=== PATIENT | male | born 1995 | race Caucasian/White ===

== ENCOUNTER 2019-02-22 10:23 | Day surgery (SDC) | payer BC, OTHER, SELFPAY ==
[2019-02-16 14:17] VITALS: BMI 30.4
[2019-02-22] VITALS (8 sets, daily range): BP systolic 106–147; BP diastolic 39–79; PULSE 55–97; RESP 16–20; TEMP 36.6–36.9; O2SAT 92–100; BMI 29.8
--- NOTE | 2019-02-22 12:43 | HP.PCM_ITS ---
History and Physical Date of Admission: 02/22/19 [facility] [address] [place], [place] [id number] OFFICE VISIT Date of Service: 02/16/19 MR#: [id number] Acct: [id number] Name: SCOTT HADDAD Rep #: [id number] : 1995 Provider: Tyrell Wolf MD Age/Sex: 24/M Location: [facility] Status: Signed Intake Vital Signs 02/16/19 Height 5 ft 8 in 02/16/19 Weight: 200 lb 02/16/19 Body Mass Index (BMI) 30.4 02/16/19 Blood Pressure 134/69 H 02/16/19 Blood Pressure Location Rt brachial 02/16/19 Blood Pressure Position Sitting 02/16/19 Respiratory Rate 18 02/16/19 Pulse Rate 66 02/16/19 Pulse Source Monitor 02/16/19 Temperature 98.3 F 02/16/19 Temperature Source Oral 02/16/19 Pulse Ox 97 02/16/19 Oxygen Delivery Method room air Intake Visit Reasons: Inguinal Hernia Left Side(no testing done) Food And Beverage Order Clerk Required: No Is patient in pain?: No Allergies acetaminophen [From Percocet] Adverse Reaction (Verified 02/20/19 14:02) Nausea oxycodone [From Percocet] Adverse Reaction (Verified 02/20/19 14:02) Nausea Medications NK 02/16/19 [History Confirmed 02/20/19] [facility] Medical History Abdominal pain (Acute) Surgical History History of appendectomy (Acute) History of right inguinal hernia repair (Acute) Family History Grandmother Heart disease Grandfather Heart disease Social History Smoking Status: Never smoker alcohol intake: current alcohol intake frequency: a few times a month substance use type: does not use HPI HPI HPI: SCOTT HADDAD is a 24 M who presents to the office today for HPI HPI Surgical H&P: Yes HPI: SCOTT HADDAD is a 24 M who presents to the office today for evaluate of left inguinal bulge 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 Last he noticed some disc discomfort comfort and a bone a bulge in his in his left left inguinal area.. ROS General General: No weight change, appetite, fatigue, colon cancer, breast cancer or weakness HEENT HEENT: No difficulty swallowing, eye injury, eye surgery, swollen glands or hoarseness Endo Endocrine: No thyroid disease, diabetes mellitus, thyroid cancer, Hair loss, heat intolerance or cold intolerance Skin Skin: No rash or changing moles Breast Breast: No left breast lump, right breast lump, nipple discharge, breast pain, abnormal mammogram, abnormal US or breast enlargement Musc Musculoskeletal: No back problems, arthritis, rheumatoid arthritis, gout or joint pain Cardio Cardiovascular: No murmur, pacemaker, heart disease, atrial fibrillation, high blood pressure, heart attack, heart stent, palpitations, shortness of breat with exertion or chest pain Psych Psychiatric: No depression, anxiety or hearing voices Resp Respiratory: No shortness of breath, No sleep apnea, No cough, No COPD, No asthma, No emphysema, No wheezing Gastro Gastrointestinal: Yes abdominal pain, No nausea or vomiting, No diarrhea, No constipation, No blood in stool, No acid reflux, No hemorrhoids, No ulcers, No gallbladder problem, No black,tarry stools Usama Hematologic: No blood thinners, No blood disorders, No bleeding, No anemia, No blood clots Neuro Neurologic: No system reviewed and no additional complaints, except as docu, No as per HPI, No abnormal walking, No abnormal hearing, No abnormal movements, No abnormal speech, No behavioral changes, No burning sensations, No confusion, No seizure-like activity, No unsteadiness, No dizziness, No localized weakness, No frequent falls, No headache(s), No lack of coordination, No loss of vision, No memory loss, No numbness, No other visual disturbances, No radiating pain, No restless legs, No sensory deficit, No fainting, No tingling, No tremor(s), No weakness, No other Exam Const General: no acute distress, well developed, well hydrated Orientation: oriented to person, oriented to place, oriented to time [facility] Head: normocephalic, atraumatic Ears: external ears normal Mouth: moist mucous membranes Eyes Sclera: sclerae normal Pupils: normal by confrontation Neck Neck: no lymphadenopathy noted Neck mass: No Thyroid: thyroid normal, symmetrical Chest Chest palpation & inspection: normal inspection of the chest Breast Palpation: No nipple discharge Resp Effort & Inspection: normal respiratory effort Auscultation: clear to auscultation bilaterally Percussion: percussion normal Cardio Rate: regular rate Rhythm: regular rhythm Heart Sounds: no murmurs GI Palpation: soft, no hepatosplenomegaly, no masses, tender Rectal Exam: other Other: Left inguinal hernia is identified on exam Rectal exam deferred. Extrem General: normal to inspection, no clubbing, cyanosis or edema Assessment & Plan Problems 1. Left inguinal hernia K40.90 Plan My plan is to perform a laparoscopic left inguinal hernia repair. The planned surgical procedure was discussed extensively with the patient. The risks, benefits, anticipated outcomes and possible complication were mentioned. The patient understands that all hernia repair surgery has a chance of recurrence and/or chronic post-operative pain. My staff has also explained the procedure in understandable terms and the patient was given the option to take printed material concerning the planned procedure. The patient had the opportunity to ask questions concerning the planned procedure. The patient freely consents to the planned procedure. Coding Level of Care Code Off vis,new,level 3 Diagnoses Left inguinal hernia K40.90 02/21/19 1440 <Electronically signed by Tyrell Wolf MD> Date Tyrell Wolf MD Cosigner Signature: Date (if applicable) CC: Aubrey Washington, ~ I have re-examined the patient. There are no clinical changes since date of exam.
[2019-02-22] MEDS: Cefazolin 2 GM in 0.9% Normal Saline 100 ML IV (13:11)
[2019-02-22] MEDS: Bupivacaine Mpf 0.5% 30 ML VIAL (13:50)
--- NOTE | 2019-02-22 14:03 | PCM.OPRPT ---
Problem List (1) Left inguinal hernia Status: Acute Report of Operation Date of Procedure: 02/22/19 Pre-Operative Diagnosis: Left inguinal hernia Post-Operative Diagnosis: Same Surgery/Procedure Performed:: Laparoscopic left inguinal hernia repair with mesh Type of Anesthesia:: General Anesthesiologist: Say Simms Description of Procedure: He was brought into the operating room placed in the supine position. Under excellent general trach intubation the abdomen was sterilely prepped and draped in usual fashion. Local was injected supraumbilically. Curvilinear incision was made. Dissection was carried down to the fascia. Fascia was grasped with Glenna. Varies needle was placed inside the abdomen. A 10/12 trocar was placed without difficulty. It was flank by 2 #5 trochars placed under direct visualization. Patient is placed in the head down rotated to the right position. Underscore the peritoneum on the left. Dissected down to Umair's ligament. Dissected laterally bringing back a indirect inguinal hernia after dissecting it free from the cord and vessel structures. Then dissected further laterally. I fashioned a medium 3D max mesh into the wound. I tacked to Umair's ligament with the pro-tacker. I tacked it superiorly and laterally with sparing tacks. I reperitonealized area. I injected local in an ileal inguinal nerve fashion under direct visualization. I inspected the right side there was no hernia identified. I remove the trochars under direct visualization. Good hemostasis was noted. Umbilical port was closed with a [id number] stitch of 0 Vicryl. Skin incisions were closed with some particular stitches of 4-0 Monocryl. Steri-Strips were applied sterile dressings were applied and the patient tolerated the procedure well. - Admit VTE Documentation VTE Present on Admission: No VTE Mechan Device Prophylaxis: SCD's VTE Pharm Prophylaxis ordered?: No Reason prophylaxis not ordered:: Treatment Not Indicated
--- NOTE | 2019-02-22 14:06 | PCM.DC.HER ---
Discharge Diet: Light diet - advance as tolerated Discharge Activity: Return to Normal Activity, May Drive - when you are no longer taking narcotic pain medications., May Shower - with the bandage in place 1-2 days after surgery. Lifting Restrictions: 20 pounds for 8 weeks. Additional Activity Instructions:: Climbing stairs is fine, walking is encouraged. Sitting in bed may be uncomfortable. Sitting up using your lateral muscles (sitting up sideways) is usually more comfortable. Do not drive, work heavy equipment of sign legal documents for 24 hours. If your hernia repair was an ingunial repair, you may have scrotal swelling, an ice pack and/or athletic support can provide more comfort. Pain medications may cause nausea, you should typically eat light foods as you take your pain medications. Pain medications may also cause constipation. If you have difficulty with this, discuss with your doctor. Call your doctor if your incision/area has: Continuous Slow Oozing, Sudden Increased Bleeding, Increased Pain/ Swelling, Increased Redness, Foul Smelling Discharge Call your doctor if you observe: Fever of 101 or Higher Suture Line Care: Avoid Pulling/Pushing, Avoid Pinching/Bending Additional Dressing/Incision Instructions:: Leave the operative bandage on for 2-3 days. When you remove the bandage, leave the steri-strips on place until your follow up appointment or they fall off. Allergies/Adverse Reactions: Allergies acetaminophen [From Percocet] Adverse Reaction (Verified 02/20/19 14:02) Nausea oxycodone [From Percocet] Adverse Reaction (Verified 02/20/19 14:02) Nausea Medications to take at Discharge Hydrocodone Bitart/Apap 5-325 [Snowflake 5MG-325MG] 1 - 2 tab PO Q4H PRN PRN 6 Days #30 tab 02/22/19 The following prescriptions were given: Hydrocodone Bitart/Apap 5-325 [Snowflake 5MG-325MG] 1 - 2 tab PO Q4H PRN PRN 6 Days #30 tab PRN Reason: Pain Primary Care Physician: Aubrey Quispe DO [Primary Care Provider] - Test Results: Test results from this visit will be discussed in further detail at your follow-up appointment, if applicable. Please Follow Up With: Tyrell Wolf MD - [phone] When: Plan to have a follow up appointment in 7 days. Call to schedule.
[2019-02-22] MEDS: HYDROcodone Bitartrate/Apap 5/325 Tablet PO ×2 (15:35→16:35)
== END 2019-02-22 17:32 | disposition home or self-care (01) ==
LOC: SDC 10:26 → AC 10:28
PROVIDERS: Family Provider Student in an Organized Health Care Education/Training Program; PCP Student in an Organized Health Care Education/Training Program; Referring Provider Surgery; Visit Provider Surgery
PROC: (CPT 49650; principal; 2019-02-22 12:15)
DX: K40.90 Unilateral inguinal hernia, without obstruction or gangrene, not specified as recurrent (principal)
CPT/HCPCS: 00840; 49650; J7120; C1781; J2405

== ENCOUNTER 2019-05-25 14:14 | Emergency (ER) | payer BC, OTHER, SELFPAY ==
[2019-02-22 10:54] VITALS: BMI 29.8
[2019-05-25 14:16] VITALS: BP 156/68; PULSE 80; RESP 16; TEMP 37.2; O2SAT 87; BMI 31.0
--- NOTE | 2019-05-25 14:55 | ED.DCSUM_ITS ---
History of Present Illness Chief Complaint: Bite Informant: Patient Onset: Today Context: Sudden Onset Timing: - - Bite x1 Quality: Dog bite dorsum left hand Location: Dorsum left hand Current Severity: Mild Maximum Severity: Moderate Worsened by: Palpation over puncture site dorsum left hand between the third and fifth m Relieved by: Nothing Associated Symptoms: No associated symptoms Narrative: Patient is a 24-year-old [id number] male who was bit by neighbors dog. He was bit left hand. He has an abrasion as well as a puncture wound dorsum of the left hand. He denies paresthesia, anesthesia or motor weakness. Last tetanus was 2010. Prior similar symptoms: No Recent Illness/Hospitalization: No - Past Medical History (1) Left inguinal hernia Status: Acute Past Medical History - Allergies and Home Meds Allergies/Adverse Reactions: Allergies acetaminophen [From Percocet] Adverse Reaction (Verified 05/25/19 14:16) Nausea oxycodone [From Percocet] Adverse Reaction (Verified 05/25/19 14:16) Nausea Primary Care Physician: Aubrey Quispe DO [Primary Care Provider] - Prior records reviewed: Yes Past Medical History: None Lives: Spouse/ Significant Other, With Family Smoking Status: Never smoker Alcohol: None Drugs: None Review of Systems General: Denies: Chills, Fever, Malaise, Sweats Musculoskeletal: Reports: Extremity Pain. Denies: Myalgias, Arthralgias, Swelling Skin: Reports: Abrasions, Wounds. Denies: Rash, Abscess Neurological: Denies: Weakness, Parasthesia, Numbness Hematologic: Denies: Easy bruising, Easy bleeding Allergy: Denies: Uticaria, Swelling of the mouth Physical Exam Vital Signs/Narrative: Vital Signs Temp Pulse Resp BP Pulse Ox 05/25/19 14:16 98.9 F 80 16 156/68 H 87 Inital Vital Signs reviewed: Yes General: Well nourished, Well developed, No Acute Distress Head: Normocephalic, Atraumatic Eyes: Perrl, EOMI. Negative for: Pale conjunctiva, Scleral icterus ENT: Moist mucous membranes, No rhinorrhea Cardiovascular: Regular rate, Regular rhythm Respiratory: No distress Extremities: No edema, - - The extensor indices, extensor commonness and extensor minimize tendon are intact. There is no pain the patient over the extensor tendons. There is no pain the patient over the second, third, fourth or fifth metacarpal. There is no pain palpation over the proximal phalanx of the index, long, ring or long finger.. Negative for: Nontender Skin: Normal color, No rash, Trauma. Negative for: Cyanosis, Diaphoresis, Jaundice Neurological: Alert, Oriented x3, Cranial nerves II-XII grossly intact, Normal Strength, Normal Sensation Psychological: Normal affect, Normal Mood Diagnostic/Tx/Re-eval - Medical Decision Making She with dog bite left hand. Tetanus was updated. Wound was cleansed and received first dose of Augmentin since he does not have allergy to penicillin. There are no neurovascular findings. He was told if he cannot be seen by his primary care physician for wound evaluation in 2 days to return to the emergency department. Since this is a puncture wound and not a laceration the incidence of infection is increased. ED Disposition - Plan for ED Patient: Disposition: Home or Assisted Living Diagnosis: Dog bite of multiple sites of left hand and fingers Instructions: Dog Bite Prescriptions: Amox/Clavulanate Tablet [Augmentin Tablet] 875 mg PO Q12H #10 tab Transmission Status: Pending to [facility]/pharmacy #[id number] Referrals: Aubrey Quispe DO [Primary Care Provider] - 2 Days for wound check Additional Instructions: Prescription was electronically transmitted to [facility] pharmacy located on back [facility]. If you are unable to be seen by her primary care physician for wound check in 2 days please return to the emergency room for reevaluation.
[2019-05-25] MEDS: Diphth,Pertuss(Acell),Tet Vac 0.5 ML Vial IM (15:02)
[2019-05-25] MEDS: Amox/Clavulanate 875 MG Tablet PO (15:02)
[2019-05-25 15:10] VITALS: BP 142/64; PULSE 84; RESP 18
== END 2019-05-25 15:25 | disposition home or self-care (01) ==
LOC: ED 15:16
PROVIDERS: Emergency Provider Emergency Medicine; Family Provider Student in an Organized Health Care Education/Training Program; PCP Student in an Organized Health Care Education/Training Program
DX: S61.432A Puncture wound without foreign body of left hand, initial encounter (principal); S61.239A Puncture wound without foreign body of unspecified finger without damage to nail, initial encounter; W54.0XXA Bitten by dog, initial encounter; Y93.9 Activity, unspecified
CPT/HCPCS: 90471; 90715; 99282

== ENCOUNTER 2023-06-05 02:08 | Emergency (ER) | payer BC, SELFPAY ==
[2023-06-05 02:08] VITALS: BP 147/99; PULSE 104; RESP 16; TEMP 37.1; O2SAT 98; BMI 27.6
--- NOTE | 2023-06-05 02:26 | CT_ITS ---
INDICATION: abd pain -- ? SBO EXAMINATION: CT Abdomen And Pelvis W/ Contrast Injection TECHNIQUE: Helically acquired images were obtained of the abdomen and pelvis with sagittal and coronal reconstructed images. Individualized dose optimization techniques were used for this CT. IV contrast dosage and agent: 100 mL of Isovue 300. Oral contrast: None. COMPARISON: None. FINDINGS: VESSELS: No abdominal aortic aneurysm or dissection. LIVER: No evidence of a mass. No intrahepatic or extrahepatic biliary duct dilation. GALLBLADDER: No calcified stones. No evidence of cholecystitis. PANCREAS: No focal solid or cystic mass. No evidence of pancreatitis. SPLEEN: Normal. ADRENAL GLANDS: Normal. KIDNEYS AND URETERS: No urinary tract stone. No hydronephrosis or hydroureter. No significant asymmetric perinephric stranding. 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 BOWEL: No evidence of diverticulosis or diverticulitis. Status post appendectomy. Prominent loops of small bowel with air-fluid levels measuring up to 2.8 cm in diameter. No evidence of bowel wall thickening or mesenteric edema or inflammatory change. REPRODUCTIVE ORGANS: No evidence of a pelvic mass. PERITONEUM: No intraabdominal free fluid or free air. LYMPH NODES: No pathologically enlarged mesenteric or retroperitoneal lymph nodes. ABDOMINAL WALL: No abdominal or pelvic wall hernia. BONES: No acute abnormality. LOWER CHEST: Visualized lung bases are unremarkable. CT/Abdomen/Pelvis W IV Cont ONLY IMPRESSION: Prominent loops of small bowel with air-fluid levels measuring up to 2.8 cm in diameter. Findings may represent enteritis or early small bowel obstruction. Electronically Signed: Gennaro Abreu DO at 3:42 EDT ,
[2023-06-05] MEDS: 0.9% Normal Saline (1000mL) 1,000 ML 999 ML IV (02:40)
[2023-06-05] MEDS: Ondansetron 4 MG/2 ML Vial IV (02:41)
[2023-06-05] MEDS: Morphine 4 MG/ML Syringe IV ×2 (02:41→06:40)
[2023-06-05 02:45] LABS: Absolute Lymphocyte Count 0.48 X10^3/uL (0.83-4.51); Absolute Neutrophil Count 10.5 X10^3/uL (2.0-7.7); Basophil# 0.03 X10^3/uL; Basophil% 0.3 % (0-1); Eosinophil# 0.04 X10^3/uL; Eosinophils% 0.3 % (0-5); Hemoglobin 16.4 g/dL (13.0-16.5); Lymphocyte # 0.48 X10^3/ul (0.83-4.51); Lymphocyte % 4.1 % (19-41); Mean Corp Hgb Conc 34.9 g/dL (32-36); Mean Corpuscular Hgb 28.3 pg (27.0-32.0); Monocyte# 0.64 X10^3/uL; Monocyte% 5.4 % (0-10); NRBC Flagged by Analyzer 0 % (0-5); Neutrophil # 10.53 X10^3/uL (2.7-7.7); Neutrophil % 89.6 % (47-70); POSITIVE DIFFERENTIAL YES; Platelet Count 183 K/mm3 (150-450); RBC Distribution Width CV 12.7 % (11.6-14.6); RBC Distribution Width SD 36.8 fl (35.1-43.9); White Blood Count 11.8 K/mm3 (4.4-11.0)
[2023-06-05 02:47] LABS: Differential Indicated SCAN CRITERIA MET
[2023-06-05 03:03] LABS: AST(SGOT) 11 U/L (15-37); Alanine Aminotransfer ALT/SGPT 23 U/L (16-61); Albumin, Serum 4.3 g/dL (3.2-5.0); Alkaline Phosphatase 55 U/L (45-117); Anion Gap 8 (5-15); BUN 22 mg/dL (7-18); BUN/Creat Ratio 19.3 RATIO (10-20); Calcium,Total 8.8 mg/dL (8.5-10.1); Chloride 106 mmol/L (98-107); Creatinine, Serum 1.14 mg/dL (0.70-1.30); EST Glomerular Filtration Rate 82 mL/min (>60); Est Glom Filt Rate - Afr Amer 99 mL/min (>60); Estimated Creatinine Clearance 97.33 ml/min; Globulin 3.4 g/dL (2.2-4.2); Glucose 159 mg/dL (74-106); Lipase 26 U/L (13-75); Potassium 3.9 mmol/L (3.5-5.1); Protein, Total 7.7 g/dL (6.4-8.2); Sodium Level 139 mmol/L (136-145)
[2023-06-05 03:10] LABS: Lactic Acid 1.6 mmol/L (0.4-1.9)
[2023-06-05 03:14] LABS: Differential Comment SCANNED
[2023-06-05 03:15] LABS: Toxic Granulation 1+
--- NOTE | 2023-06-05 06:36 | EDS_ITS ---
HPI History of Present Illness Chief Complaint: Abd Pain Informant: patient and spouse/S.O. Narrative Narrative: Patient is a 28-year-old male with past medical history of appendectomy as well as 3 previous hernia repairs with the most recent being laparoscopic done at [facility] by Dr. Aguilar roughly 3 weeks ago. Patient states he ate dinner this evening and then roughly 2 hours later had sudden onset upper abdominal pain with bouts of vomiting. He states he has not been able to get the pain or vomiting under control and secondary to this comes in for evaluation. He denies any history of previous obstruction. He states he had a bowel movement shortly after eating dinner which is normal for him but since that time his not had another bowel movement and denies passing gas [facility] Medical History (Updated 06/05/23 @ 06:[address] Aden Magallon DO) Abdominal pain Home Medications NK 06/05/23 [History Last Taken Unknown] Allergy/AdvReac Type Severity Reaction Status Date / Time acetaminophen [From Percocet] AdvReac Nausea Verified 06/05/23 02:12 oxycodone [From Percocet] AdvReac Nausea Verified 06/05/23 02:12 Family History Grandmother Heart disease Grandfather Heart disease Surgical History History of appendectomy History of right inguinal hernia repair Social History (Updated 03/02/19 @ 15:43 by Kirsty WKOK PA-C) Smoking Status: Never smoker alcohol intake: current alcohol intake frequency: a few times a month substance use type: does not use ROS ROS ED Constitutional Constitutional ED: Denies chills or fever(s) ENT ENT ED: Denies sore throat Cardiovascular Cardiovascular: Denies chest pain Respiratory/Chest Respiratory/Chest: Denies cough or dyspnea Gastrointestinal Gastrointestinal: Reports abdominal pain, nausea and vomiting; Denies diarrhea Genitourinary Genitourinary ED: Denies dysuria Musculoskeletal Musculoskeletal: Denies myalgias Integumentary Denies rash Neurologic Neurologic: Denies headache(s) Hematologic/Lymphatic Hematologic/Lymphatic: Denies easy bleeding or easy bruising EXAM Physical Exam Const Vital Signs: 06/05/23 02:08 Temperature 98.7 F Temperature Source Temporal Pulse Rate 104 H Respiratory Rate 16 Blood Pressure 147/99 H Blood Pressure Mean 115 Pulse Ox 98 Oxygen Delivery Method Room Air Positive well nourished and well developed General Appearance ED: well developed HEENT Reports moist mucous membranes HEENT Narrative: No secondary changes to suggest infection in the posterior pharynx Eyes PERRL and EOMs intact bilaterally Neck supple Resp normal respiratory effort and clear to auscultation bilaterally Cardio regular rate and regular rhythm GI GI Narrative: Abdomen is soft with hypoactive bowel sounds. There is mild pain with palpation in the midepigastric to left upper quadrant region. No voluntary guarding or rigidity. There is slight distention noted but no increased tympany. Auscultation: hypoactive bowel sounds Palpation: soft Back/Spine no CVA tenderness Extremity normal to inspection Neuro oriented x3 and CN's II-XII intact bilaterally Sensorium / Orientation: alert Psych mental status grossly normal Skin no rashes or lesions noted General Skin Exam: Negative for jaundice MDM MDM MDM Narrative Medical decision making narrative: Patient presented to the ER hypertensive otherwise with stable vitals. He reported sudden onset of upper abdominal pain with bouts of vomiting. His exam does not show changes consistent with an overt bowel obstruction but he does have a significant history that places him at risk for obstruction so therefore basic labs and a CT scan were obtained. Labs revealed no clinically significant findings but CT scan showed changes concerning for early small bowel obstruction. I discussed the case with our surgeon Dr. Santos. He does feel that based on the patient's CT scan and symptoms that observation is appropriate however as he had surgery 3 weeks ago at an outside hospital recommends the patient be sent back to their facility. Therefore I contacted [facility] and spoke to general surgery. They state at this time without obvious transition point they do not feel need to take him directly to an admission bed and instead recommend ER to ER transfer. Therefore the ER was contacted and they do agree to accept the patient at this time. The patient has had no further bouts of vomiting while in the ER and vitals remained stable and therefore he is safe for transfer at this time. Plan of care discussed with patient and family and they are agreeable to it History & Record Review Discussion w/independent historian: Patient and Significant other Lab Data Attestation: I reviewed the patient's lab results. Labs: Laboratory Results - last 24 hr 06/05/23 06/05/23 02:13 02:35 WBC 11.8 H RBC 5.80 Hgb 16.4 Hct 47.0 MCV 81.0 MCH 28.3 MCHC 34.9 RDW Std Deviation 36.8 RDW Coeff of Noah 12.7 Plt Count 183 MPV 12.0 Immature Gran % (Auto) 0.300 Neut % (Auto) 89.6 H Lymph % (Auto) 4.1 L [place] % (Auto) 5.4 Eos % (Auto) 0.3 Baso % (Auto) 0.3 Absolute Neuts (auto) 10.5 H Absolute Lymphs (auto) 0.48 L Nucleated RBC % 0 Differential Comment SCANNED Toxic Granulation 1+ Sodium 139 Potassium 3.9 Chloride 106 Carbon Dioxide 25.0 Anion Gap 8 BUN 22 H Creatinine 1.14 Estim Creat Clear Calc 97.33 Est GFR (MDRD) Af Amer 99 Est GFR (MDRD) Non-Af 82 BUN/Creatinine Ratio 19.3 Glucose 159 H Lactic Acid 1.6 Calcium 8.8 Total Bilirubin 1.70 H Direct Bilirubin 0.30 AST 11 L ALT 23 Alkaline Phosphatase 55 Total Protein 7.7 Albumin 4.3 Globulin 3.4 Lipase 26 Radiography Diagnostic Testing: Clinical Impression(s) from Imaging Studies Abdomen/Pelvis CT 06/05/23 02:26 IMPRESSION: Prominent loops of small bowel with air-fluid levels measuring up to 2.8 cm in diameter. Findings may represent enteritis or early small bowel obstruction. Electronically Signed: Gennaro Abreu DO at 3:42 EDT Reading Location ID and State: [facility] / [place] Tel , Service support , Discharge Plan Triage Chief Complaint: Abd Pain ED Provider: Aden Magallon Dx/Rx/DC Orders Clinical Impression: SBO (small bowel obstruction) Instructions: Small Bowel Obstruction Prescriptions: No Action NK Primary Care Provider: Aubrey Quispe Referrals: Aubrey Quispe DO [Primary Care Provider] - Activity Restrictions/Additional Instructions: Your CT scan shows changes consistent with an early small bowel obstruction which is most likely related to scar tissue from your previous abdominal surgery. At this time you need to be reevaluated by your surgeon from [facility] who performed your recent abdominal surgery. Therefore leave this ER and go straight to their ER as an ER to ER transfer. Disposition Disposition: Acute Care Hospital Discharge Location: [facility]
[2023-06-05 06:54] VITALS: BP 136/69; PULSE 90; RESP 15; O2SAT 96
== END 2023-06-05 06:57 | disposition short-term general hospital (02) ==
PROVIDERS: Emergency Provider Emergency Medicine; PCP Student in an Organized Health Care Education/Training Program; Visit Provider Emergency Medicine
DX: K56.609 Unspecified intestinal obstruction, unspecified as to partial versus complete obstruction (principal)
CPT/HCPCS: 36415; 74177; 80048; 80076; 83605; 83690; 85025; 96361; 96374; 96375; 96376; 99284; J7030; Q9967; A4216; J2405

== ENCOUNTER 2024-10-06 15:00 | Outpatient (RCR) | payer BC, SELFPAY ==
--- NOTE | 2024-09-19 18:53 | HP.PTEVAL ---
Patient's Visit Information Visit Information Visit Information: SCOTT HADDAD is a 29 year old M referred to Physical Therapy by Crow Oquendo PA-C with a diagnosis of L medial epicondylitis elbow. Date of Evaluation: 09/19/24 Physical Therapist: Aaron Kate, PAOLAT, OCS, CSCS Visit Plan Frequency: 3x /Week Duration: 4-6 Weeks Plan: 3x/week for 4-6 weeks(start 2) for 1. US to R medial epicondyle elbow nonthermal 2. wrist flexor L STM and stretch , CF< L elbow/IASTM 3. eccentric strength L wrist flexors to HEP 4. return to general strength program once improved. 5. ice massage L medial elbow as needed. IE HEP: shown appropriate medial epicondylitis brace with pics, wrist flexor stretch 30 5x 2x/day, wrist circles throughout day, activitiy modificaiton Subjective Subjective: L golfers elbow. pain there for 3 months. Not sure what started it, but started feeling it with pullups. Rested and iced and time off and did not get better. Normal crossfit workout and that hurt. Gets pins and needles on L medial elbow. 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 Holding computer, holding kid hurts, changing oil filters uses other hand. Uses R hand most of time. Saw doctor last week adn x ray it was OK. Pain L medial elbow: Pain Intensity (Out of 10): 0 Pain Intensity Range: 0 and 6 Comment: worse holding child, good at rest Objective Objective: Tender L medial epicondyle elbow moderately and + tingling at ulnar nerve groove. cervical adn scap and shoulder aROM WNL and without pain. elbow AROM without pain wrist ROM sup/pro/flex/ext without pain except endrange stretch of flexors at epicondyle. + golfers elbow test, - lat epi test. wrist flexion painful and slightly weaker than R. wrist ext and thumb extension symmetrical and no problem. elbow flexion and supination slightly painful to resistance. all strength 4+/5 up into shoulders.. 2/3 bi and tri reflexes, Sensation UE WNL to gross light touch. Balance/Special Test Scores Quick DASH Score: 27.2725 Goals Goal 1:: I appropriate HEP to limit future problems Goal Time Frame: 4-6 Weeks Goal 2:: medial L elbow pain 1/10 at worst adn 80% improved. Goal Time Frame: 4-6 Weeks Goal 3:: qucik dah score 13 or better Goal Time Frame: 4-6 Weeks Goal 4:: work without increased pain Goal Time Frame: 4-6 Weeks Goal 5:: Lift child without pain Goal Time Frame: 4-6 Weeks Rehabilitation Potential Physical Therapy Diagnosis: tenderness and pain in L elbow limiting comfortable funciton. Rehabilitation Potential: Good Anticipated Interventions Patient/Client Instruction: Educate patient on: Condition and Plan of Care For the Purpose of:: To decrease pain, To improve nutrient delivery to tissue, To improve muscle performance and motor function and To increase tolerance to activity/condition/position Therapeutic Exercise to Include: Strength training, Flexibilty training, Passive ROM and Active ROM For the Purpose of:: To decrease pain, To increase ROM, To improve nutrient delivery to tissue, To improve muscle performance and motor function and To increase tolerance to activity/condition/position Manual Therapy Techniques to Include: Scar massage, Passive ROM and Soft tissue mobilization For the Purpose of:: To decrease pain, To improve nutrient delivery to tissue and To improve muscle performance and motor function Cryotherapy (ice pack, ice massage): Yes Ultrasound (thermal/non thermal): Yes (nonthermal) Text: Thank you for the opportunity to evaluate your patient. For Medicare and Medicare HMO plans, please review the plan of care and approve it. It will need to be FAXED BACK to us at [phone] for Medicare purposes. For Medicare only, by signing this I certify the plan of care. Please let me know if there are questions or concerns regarding this plan of care. Physician Signature: Date:
--- NOTE | 2024-10-06 15:43 | HP.PTDCSUM ---
Discharge Summary D/C summary: It has been my pleasure to treat SCOTT HADDAD referred by Crow Oquendo PA-C, with the diagnosis of L medial epicondylitis elbow for a total of 7 visit(s). Discharge Date: 10/06/24 Please see the following information for a summary of their discharge status. Subjective Subjective: Turned a corner. Better since Wednesday. doing eccentrics and stretches at home. Still taking it easy. Being careful with picking up baby with L arm. using it more this week and no pain. pain this week 0-1/10 only. No f/u. Maybe MRI if worsens again. Pain L medial elbow: Pain Intensity (Out of 10): 0 Overall Improvement % Improvement: 90 Objective Objective/Function: No tenderness L medial epicondyle, no tingling with tinels, 5/5 strenth wrist flexion and ext without pain today. Goals Goal 1:: I appropriate HEP to limit future problems Goal Progress: Goal Met Goal 2:: medial L elbow pain 1/10 at worst adn 80% improved. Goal Progress: Goal Met Goal 3:: qucik dah score 13 or better Goal Progress: Progressing Goal 4:: work without increased pain Goal Progress: Goal Met Goal 5:: Lift child without pain Goal Progress: careful Plan Plan: d/c to HEP D/C Information Discharge Comments: Doing well adn will contact doctor if worsens. d/c sentence: If there are questions or concerns regarding this patient's physical therapy, please feel free to call me at [phone]. Thank you for the referral of this patient. Sincerely, Aaron Kate, DPT, OCS, CSCS Balance/Gait/Functional tests Balance/Special Test Scores Quick DASH Score: 6.8175 Improvement % Improvement: 90
== END 2024-10-06 19:00 | disposition home or self-care (01) ==
LOC: PT 15:00
PROVIDERS: PCP Student in an Organized Health Care Education/Training Program; Referring Provider Physician Assistant Surgical; Visit Provider Physician Assistant Surgical
DX: M25.522 Pain in left elbow (principal); M77.02 Medial epicondylitis, left elbow
CPT/HCPCS: 97035; 97110; 97140; 97161; 97164